=== PATIENT | female | born 2000 | race Caucasian/White ===

== ENCOUNTER → 2020-06-04 08:02 | Outpatient (CLI) | payer OTHER, SELFPAY ==
--- NOTE | 2020-06-04 08:05 | US_ITS ---
STUDY: ULTRASOUND BREAST - LEFT REASON FOR EXAM: Female, 20 years old. Left axillary lump. TECHNIQUE: Axial and longitudinal images of the LEFT breast were performed with a high resolution ultrasound transducer. # OF IMAGES: 33 COMPARISON: None. FINDINGS: LEFT Breast: The left axillary region was examined by ultrasound. 3 small benign appearing lymph nodes are seen. The larger measures 1.4 cm x 1 cm x 0.4 cm. US/Breast Limited Unilateral IMPRESSION: 3 benign appearing left axillary lymph nodes. ASSESSMENT CATEGORY: BIRADS Category 2: Benign. A letter regarding these results will be sent to the patient by the facility within 30 days. Electronically Signed: Ion Santiago, at 11:12 EST , Service support ,
== END ==
PROVIDERS: PCP Family Medicine; Referring Provider Family Medicine; Visit Provider Family Medicine
DX: I89.9 Noninfective disorder of lymphatic vessels and lymph nodes, unspecified (principal)
CPT/HCPCS: 76642

== ENCOUNTER → 2021-11-18 | Outpatient (CLI) | payer OTHER, SELFPAY ==
--- NOTE | 2021-11-18 14:31 | US_ITS ---
STUDY: ULTRASOUND BREAST - LEFT REASON FOR EXAM: Female, 21 years old. Left axillary lump. TECHNIQUE: Axial and longitudinal images of the LEFT breast were performed with a high resolution ultrasound transducer. # OF IMAGES: 25 COMPARISON: Comparison is made with prior examination dated 06/04/2020. FINDINGS: LEFT Breast: The previously seen lymph node in the left axilla as decreased in size. It presently measures 1.1 cm x 0.7 cm x 0.4 cm. A smaller benign-appearing lymph node is seen adjacent measuring 8 mm x 8 mm x 3 mm. US/Breast Limited Unilateral IMPRESSION: Small benign appearing left axillary nodes. ASSESSMENT CATEGORY: BIRADS Category 2: Benign. A letter regarding these results will be sent to the patient by the facility within 30 days. Electronically Signed: Ion Santiago MD at 15:33 EDT ,
== END | disposition home or self-care (01) ==
LOC: OPBI 14:28
PROVIDERS: PCP Family Medicine; Visit Provider Student in an Organized Health Care Education/Training Program
DX: N63.21 Unspecified lump in the left breast, upper outer quadrant (principal)
CPT/HCPCS: 76642

== ENCOUNTER → 2022-07-21 | Outpatient (CLI) | payer OTHER, SELFPAY ==
[2022-07-27 19:10] LABS: HPV Reflexed? NOT INDICATED
== END | disposition home or self-care (01) ==
LOC: LABSPEC 09:18
PROVIDERS: PCP Family Medicine; Visit Provider Student in an Organized Health Care Education/Training Program
DX: Z12.4 Encounter for screening for malignant neoplasm of cervix (principal)
CPT/HCPCS: 88175; G0145

== ENCOUNTER → 2024-01-18 | Outpatient (CLI) | payer OTHER, SELFPAY ==
[2024-01-18 19:25] LABS: hCG Titer Quant., Serum < 1 mIU/mL (1-3)
== END | disposition home or self-care (01) ==
PROVIDERS: PCP Family Medicine; Referring Provider Dermatology; Visit Provider Dermatology
DX: L01.01 Non-bullous impetigo (principal)
CPT/HCPCS: 36415; 84702; 87070; 87077; 87186; 87205

== ENCOUNTER → 2024-03-10 | Outpatient (CLI) | payer OTHER, SELFPAY ==
[2024-03-10 10:39] LABS: Absolute Lymphocyte Count 1.33 X10^3/uL (0.83-4.51); Absolute Neutrophil Count 4.8 X10^3/uL (2.0-7.7); Basophil# 0.01 X10^3/uL; Basophil% 0.2 % (0-1); Eosinophil# 0.03 X10^3/uL; Eosinophils% 0.5 % (0-5); Hematocrit 38.3 % (37-47); Hemoglobin 13.8 g/dL (12.0-15.0); Lymphocyte # 1.33 X10^3/ul (0.83-4.51); Lymphocyte % 20.4 % (19-41); Mean Corpuscular Hgb 30.9 pg (27.0-32.0); Mean Corpuscular Volume 85.9 fL (81-99); Mean Platelet Vol. 8.7 fl (6.2-12.0); Monocyte# 0.29 X10^3/uL; Monocyte% 4.4 % (0-10); NRBC Flagged by Analyzer 0 % (0-5); Neutrophil # 4.84 X10^3/uL (2.7-7.7); Neutrophil % 74.2 % (47-70); Platelet Count 278 K/mm3 (150-450); RBC Distribution Width CV 12.3 % (11.6-14.6); RBC Distribution Width SD 38.6 fl (35.1-43.9); Red Blood Count 4.46 M/mm3 (4.2-5.4); White Blood Count 6.5 K/mm3 (4.4-11.0)
[2024-03-10 11:56] LABS: HIV - WCH Non-Reactive (Nonreactive); Hepatitis B Surface Antigen Non-Reactive (Nonreactive); Hepatitis C Antibody Non-Reactive (Nonreactive); Rubella IgG Reactive (Nonreactive); Syphilis Antibodies Non-reactive
[2024-03-13 19:07] LABS: Chlamydia By Nucleic Acid AMP Negative (Negative); Gonococcus By Nucleic Acid AMP Negative (Negative)
== END | disposition home or self-care (01) ==
LOC: WOBLAB 09:32
PROVIDERS: PCP Family Medicine; Referring Provider Advanced Practice Midwife; Visit Provider Advanced Practice Midwife
DX: Z34.01 Encounter for supervision of normal first pregnancy, first trimester (principal)
CPT/HCPCS: 36415; 85025; 86703; 86762; 86780; 86803; 86850; 86900; 86901; 87086; 87340; 87491; 87591

== ENCOUNTER 2024-06-17 13:02 | Outpatient (CLI) | payer OTHER, SELFPAY ==
[2024-06-17 13:25] LABS: Color, Urine Straw (Yellow); Glucose, Dipstick Normal (Normal); Ketone-Dipstick 5 mg/dl (Negative); Leukocyte Esterase-Dipstick Negative /ul (Negative); Nitrite-Dipstick Negative (Negative); Occult Blood-Urine Negative /ul (Negative); Protein-Dipstick Negative (Negative); Urine Bilirubin Dipstick Negative (Negative); Urine Clarity Sl. Cloudy (Clear); Urine Urobilinogen Normal (Normal)
[2024-06-17 13:30] VITALS: BP 125/72; PULSE 77; O2SAT 98
[2024-06-17 13:31] VITALS: PULSE 80; RESP 14; TEMP 37.3; O2SAT 98
[2024-06-17 13:34] VITALS: BMI 22.8
--- NOTE | 2024-06-17 14:32 | OB.TRI.HP_ITS ---
HPI - General HPI Narrative GABBY HAWTHORNE, is a 24 F who presents at 24.2 with abdominal cramping. denies lof/vb. good fm. has increased physical activity with a new treadmill this past week and is experiencing urgency with urination. otherwise describes pain as constant diffuse tenderness. Maternal Data Information MELYSSA Calculator Estimated Delivery Date Method Current WG Current Estimate 10/05/24 LMP (Certain) 24w 2d Other Estimates 09/30/24 Ultrasound #1 25w 0d PFSH PFSH Medical History Staph skin infection Home Medications ?Medication ?Instructions ?Recorded ?Last Taken ?Type PNV 153-FA 400 mcg-om3 35 mg-dha 1 tab PO DAILY 03/03/24 Unknown History 25 mg-epa 5 mg-fish oil chew tablet ferrous sulfate 325 mg (65 mg 325 mg PO QDAY 03/03/24 Unknown History iron) tablet Allergy/AdvReac Type Severity Reaction Status Date / Time sulfamethoxazole (From Allergy Mild Rash Verified 06/06/24 10:55 Bactrim) trimethoprim (From Bactrim) Allergy Mild Rash Verified 06/06/24 10:55 amoxicillin Allergy Rash Verified 06/06/24 10:55 azithromycin (From Zithromax) Allergy Rash Verified 06/06/24 10:55 Penicillins Allergy Rash Verified 06/06/24 10:55 Family History Grandfather Hypertension Paternal & Maternal Grandmother Hypertension Paternal & Maternal Surgical History S/P tonsillectomy S/P adenoidectomy Social History adopted: No household members: spouse current occupational status: employed 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 current occupational exposures/hazards: No pets and animals: Yes pets and animals: dog(s) history of recent travel: Yes ([place] November) out of state: Yes out of country: Yes sexually active: Yes Smoking Status: Never smoker alcohol intake: never substance use type: does not use well-balanced diet: daily or most days caffeine: No eating out: rarely or never during the past year weight has: remained stable what type of physical activity do you participate in: running and other details: pilates frequency: 3-4 times per week duration: 15-30 minutes/day lyly/gnosticist: Cheondoism seatbelt use: always do you feel safe at home: Yes additional social history: - Mazin History 1 Elective abortions Hx Para 0 Spontaneous abortions Hx # Term Pregnancies Ectopic pregnancies Hx # Pregnancies Multiple births # of living children Visit Details Expected Delivery Route/Plan Labor Preferences- CB/BF classes: [] labor support person: [] labor intervention preferences: [] pain management options preferred: [] cut cord/dad catch: [] : [] PP control planned: [] discussed possible routes of delivery and associated risks: [] special requests: [] Plans Covid status: [] Flu vaccine: [] Tdap vaccine: [] Rhogam: [] LARC form signed: [] Problem list reviewed and updated with the most current plan of care details and appropriate orders placed. Relevant counseling for the gestational age provided. Continue routine care and follow up unless otherwise noted in visit notes/problem list details OB Flowsheet Initial Weight: 118 lb Date -?-?-?-?-?-?-?-?-?-?-?-?- EGA Weight BP Urine Prot -?-?-?-?-?-?-?-?-?-?-?-?- Glucose FHR FuHt Pres Dilation -?-?-?-?-?-?-?-?-?-?-?-?- Effaced St Visit Note 03/10/24 -?-?-?-?-?-?-?-?-?-?-?-?- 10w 1d 118 lb (+0 oz) 113/80 -?-?-?-?-?-?--?-?-?-?-?-?- 168 -?-?-?-?-?-?-?-?-?-?-?-?- KW- CRL cons wit h dates. accept NIPT. MFM Anatomy US ordered. 04/11/24 -?-?-?-?-?-?-?-?-?-?-?-?- 14w 5d 117 lb 4 oz (-12 oz) 124/81 Negative -?-?-?-?-?-?-?-?-?-?-?-?- Negative 140 -?-?-?-?-?-?-?-?-?-?-?-?- JV- no lof, vagi nal bleeding, or cramping. patient's dad did our addition. no complaints today. anatomy scan ordered. 05/09/24 -?-?-?-?-?-?-?-?-?-?-?-?- 18w 5d 120 lb 6 oz (+2 lb 6 oz) 116/72 Negative -?-?-?-?-?-?-?-?-?-?-?-?- Negative 153 -?-?-?-?-?-?-?-?-?-?-?-?- MH-No VB. Feels well. Reviewed PN labs. Declines flu, AFP 06/06/24 -?-?-?-?-?-?-?-?-?-?-?-?- 22w 5d 124 lb 8 oz (+6 lb 8 oz) 117/77 Negative -?-?-?-?-?-?-?-?-?-?-?-?- Negative 155 -?-?-?-?-?-?-?-?-?-?-?-?- MH-No Vb LOF. Go od FM. Doing well Physical Exam Const alert, oriented x3 and no apparent distress Resp normal respiratory effort, normal air movement and no use of accessory muscles Cardio regular rate and regular rhythm GI soft to palpation and non-tender Inspection: Palpation: soft Rectal Exam: deferred external exam normal, appearance of the vagina normal and appearance of the cervix normal Bimanual Exam - Vag & Uterus: uterus non-tender and other gravid uterus, normal for gestational age OB / External & Speculum: Negative for herpetic lesions Manual OB Exam: estimated gestational size appropriate, presentation cephalic and dilated 0 Amniotic Fluid: no amniotic fluid noted Extremity normal to inspection and full ROM Skin no rashes or lesions noted Neuro Motor Exam: strength 5/5 throughout and muscle tone normal throughout Deep Tendon Reflexes: Rt Patellar (L4): 2+ and Lt Patellar (L4): 2+ NST FHR Rate Baby A Baseline: 140 Assessment & Plan (1) Abdominal cramping affecting : COMMENT: BV swab sent. sse benign. cervix long thick and closed. urine dip benign, culture pending. treatment based on cultures. safe for d/c home (2) Supervision of normal first : QUALIFIERS: Trimester: second trimester Qualified Code(s): Z34.02 - Encounter for supervision of normal first , second trimester COMMENT: PRR,, MELYSSA 10/05/24, Mazin (3) : QUALIFIERS: Weeks of gestation: 22 weeks Qualified Code(s): Z3A.22 - 22 weeks gestation of COMMENT: NIPT low risk, nl anatomy PLAN: Plan Patient presents for triage evaluation secondary to adbominal cramping for the past 3 hours. urine culture pending. urine dip is negative. sterile speculum exam shows abundant white discharge with positive whiff, genital culture sent. FHT: 140, present, active movement Edgard: questionable irregular Contractions Assessment and plan: Reactive NST, reassuring maternal and status patient discharged to home to follow-up, increase hydration with rest from treadmill until next appointment. See problem list details for additional plan information. Charges/Coding Multi Select Codes Visit Charges Office Visit/Consults: 17844 OV L3 Est 20min
== END 2024-06-17 14:44 | disposition home or self-care (01) ==
LOC: WPOUT 13:09 → WP 13:09
PROVIDERS: PCP Family Medicine; Referring Provider Registered Nurse; Visit Provider Registered Nurse
DX: O99.891 Other specified diseases and conditions complicating pregnancy (principal); R10.9 Unspecified abdominal pain; Z3A.22 22 weeks gestation of pregnancy
CPT/HCPCS: 59025; 59050; 81002; 87070; 87086; 87088; 87205; 99221; G0378

== ENCOUNTER → 2024-06-30 | Outpatient (CLI) | payer OTHER, SELFPAY ==
[2024-06-30 12:16] LABS: Glucose Challenge Gest 1H 50g 123 mg/dL (70-140)
[2024-06-30 12:20] LABS: Absolute Lymphocyte Count 1.32 X10^3/uL (0.83-4.51); Absolute Neutrophil Count 6.7 X10^3/uL (2.0-7.7); Basophil# 0.03 X10^3/uL; Basophil% 0.4 % (0-1); Eosinophil# 0.03 X10^3/uL; Eosinophils% 0.4 % (0-5); Hematocrit 36.5 % (37-47); Hemoglobin 12.5 g/dL (12.0-15.0); Lymphocyte # 1.32 X10^3/ul (0.83-4.51); Lymphocyte % 15.5 % (19-41); Mean Corp Hgb Conc 34.2 g/dL (32-36); Mean Corpuscular Hgb 31.4 pg (27.0-32.0); Mean Corpuscular Volume 91.7 fL (81-99); Mean Platelet Vol. 9.1 fl (6.2-12.0); Monocyte# 0.34 X10^3/uL; NRBC Flagged by Analyzer 0 % (0-5); Neutrophil # 6.68 X10^3/uL (2.7-7.7); Neutrophil % 78.6 % (47-70); Platelet Count 258 K/mm3 (150-450); RBC Distribution Width CV 12.8 % (11.6-14.6); RBC Distribution Width SD 42.4 fl (35.1-43.9); Red Blood Count 3.98 M/mm3 (4.2-5.4); White Blood Count 8.5 K/mm3 (4.4-11.0)
[2024-06-30 12:52] LABS: HIV - WCH Non-Reactive (Nonreactive); Syphilis Antibodies Non-reactive
== END | disposition home or self-care (01) ==
LOC: BWCLAB 10:55
PROVIDERS: PCP Family Medicine; Referring Provider Obstetrics & Gynecology; Visit Provider Obstetrics & Gynecology
DX: Z34.02 Encounter for supervision of normal first pregnancy, second trimester (principal)
CPT/HCPCS: 36415; 82950; 85025; 86703; 86780

== ENCOUNTER → 2024-09-04 | Outpatient (CLI) | payer OTHER, SELFPAY ==
--- NOTE | 2024-09-04 13:48 | US_ITS ---
PROCEDURE: OB LIMITED WITH BIOMETRICS 09/04/2024 REASON FOR EXAM: SMALL FOR GESTATIONAL AGE AND BREECH TECHNIQUE: Transabdominal OB limited ultrasound with biometrics COMPARISON: None available FINDINGS Single live intrauterine cardiac activity 133 beats per minute. Presentation breech. Cervical length not visualized. Adnexa not visualized. JORDEN 7.6 cm, maximum vertical pocket 3.8 cm. Anterior placenta appears within limits, not low-lying. Grade 2. DIMENSIONS: Biparietal Diameter: 9.08 cm/36 weeks and 6 days, 86% Head Circumference: 33.88 cm/38 weeks 6 days, 91% Abdominal Circumference: 31.41 cm/35 weeks 2 days, 52% Femur Length: 6.90 cm/35 weeks 3 days, 40% FL/AC 22%, FL/BPD 76%, FL/HC 20%, CI 75%, HC/AC 1.08 ESTIMATED WEIGHT: 2757 g +/-414 g ESTIMATED WEIGHT PERCENTILE (24+ weeks): 54% Estimated age by current ultrasound 37 weeks 0 days, MELYSSA 09/25/2024 age by LMP 35 weeks 5 days, MELYSSA 10/05/2024 US/OB Limited With Biometrics IMPRESSION: Single live intrauterine with biometrics as above. JORDEN 7.6 cm Reading Location: [id number]
== END | disposition home or self-care (01) ==
PROVIDERS: PCP Family Medicine; Referring Provider Obstetrics & Gynecology; Visit Provider Obstetrics & Gynecology
DX: O32.1XX0 Maternal care for breech presentation, not applicable or unspecified (principal); Z3A.00 Weeks of gestation of pregnancy not specified
CPT/HCPCS: 76816

== ENCOUNTER → 2024-09-07 | Outpatient (CLI) | payer OTHER, SELFPAY | END | disposition home or self-care (01) | LOC: LABSPEC 15:43 | PROVIDERS: PCP Family Medicine; Referring Provider Obstetrics & Gynecology; Visit Provider Obstetrics & Gynecology | DX: Z34.03 Encounter for supervision of normal first pregnancy, third trimester (principal) | CPT/HCPCS: 87081 ==

== ENCOUNTER 2024-09-21 09:35 | Inpatient (IN) | payer OTHER, SELFPAY ==
[2024-09-21] VITALS (17 sets, daily range): BP systolic 100–120; BP diastolic 59–81; PULSE 72–99; RESP 16–25; TEMP 36.1–37.1; O2SAT 95–100; BMI 25.7
[2024-09-21] MEDS: Lactated Ringers 1,000 ML 999 ML IV ×2 (10:30→14:11)
[2024-09-21 11:21] LABS: Absolute Lymphocyte Count 1.12 X10^3/uL (0.83-4.51); Absolute Neutrophil Count 7.1 X10^3/uL (2.0-7.7); Basophil# 0.04 X10^3/uL; Basophil% 0.4 % (0-1); Eosinophil# 0.03 X10^3/uL; Eosinophils% 0.3 % (0-5); Hematocrit 35.5 % (37-47); Hemoglobin 12.8 g/dL (12.0-15.0); Lymphocyte # 1.12 X10^3/ul (0.83-4.51); Lymphocyte % 12.6 % (19-41); Mean Corp Hgb Conc 36.1 g/dL (32-36); Mean Corpuscular Hgb 32.3 pg (27.0-32.0); Mean Corpuscular Volume 89.6 fL (81-99); Mean Platelet Vol. 9.7 fl (6.2-12.0); Monocyte# 0.46 X10^3/uL; Monocyte% 5.2 % (0-10); NRBC Flagged by Analyzer 0 % (0-5); Neutrophil # 7.11 X10^3/uL (2.7-7.7); Platelet Count 231 K/mm3 (150-450); RBC Distribution Width CV 12.7 % (11.6-14.6); RBC Distribution Width SD 41.1 fl (35.1-43.9); Red Blood Count 3.96 M/mm3 (4.2-5.4); White Blood Count 8.9 K/mm3 (4.4-11.0)
[2024-09-21] MEDS: Acetaminophen 500 MG Tablet 1000 MG PO ×2 (11:53→19:16)
[2024-09-21 12:14] LABS: Syphilis Antibodies Nonreactive (Nonreactive)
[2024-09-21] MEDS: Lactated Ringers 1,000 ML 150 ML IV (15:40)
--- NOTE | 2024-09-21 17:17 | HP.PCM.OB_ITS ---
HPI - General General Date of Admission: 09/21/24 HPI Narrative GABBY HAWTHORNE, is a 24 F who presents with jorden 1.4 cm and decresaed movement no vb lof no regular ctx Maternal Data Information MELYSSA Calculator Estimated Delivery Date Method Current WG Current Estimate 10/05/24 LMP (Certain) 38w 0d Other Estimates 09/30/24 Ultrasound #1 38w 5d PFSH PFSH Medical History (Updated 09/21/24 @ 17:[address] Leatha Post MD) Oligohydramnios Staph skin infection Home Medications ?Medication ?Instructions ?Recorded ?Last Taken ?Type PNV 153-FA 400 mcg-om3 35 mg-dha 1 tab PO DAILY pregna ncy 03/03/24 09/19/24 21:00 History 25 mg-epa 5 mg-fish oil chew tablet 1 TAB Allergy/AdvReac Type Severity Reaction Status Date / Time sulfamethoxazole (From Allergy Mild Rash Verified 09/21/24 11:12 Bactrim) trimethoprim (From Bactrim) Allergy Mild Rash Verified 09/21/24 11:12 amoxicillin Allergy Rash Verified 09/21/24 11:12 azithromycin (From Zithromax) Allergy Rash Verified 09/21/24 11:12 Penicillins Allergy Rash Verified 09/21/24 11:12 Family History Grandfather Hypertension Paternal & Maternal Grandmother Hypertension Paternal & Maternal Surgical History S/P tonsillectomy S/P adenoidectomy Social History adopted: No household members: spouse current occupational status: employed 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 [employer] current occupational exposures/hazards: No pets and animals: Yes pets and animals: dog(s) history of recent travel: Yes ([place] November) out of state: Yes out of country: Yes sexually active: Yes Smoking Status: Never smoker alcohol intake: never substance use type: does not use well-balanced diet: daily or most days caffeine: No eating out: rarely or never during the past year weight has: remained stable what type of physical activity do you participate in: running and other details: pilates frequency: 3-4 times per week duration: 15-30 minutes/day lyly/caodaism: Druze seatbelt use: always do you feel safe at home: Yes additional social history: - Mazin History 1 Elective abortions Hx Para 0 Spontaneous abortions Hx # Term Pregnancies Ectopic pregnancies Hx # Pregnancies Multiple births # of living children Visit Details Expected Delivery Route/Plan Labor Preferences- CB/BF classes: no labor support person: Mazin labor intervention preferences: [] pain management options preferred: epidural if requested cut cord/dad catch: cord : maybe PP control planned: discussed discussed possible routes of delivery and associated risks: [] special requests: [] Plans Covid status: [] Flu vaccine: [] Tdap vaccine: declines Rhogam: na LARC form signed: yes movement and labor precautions reviewed. Problem list reviewed and updated with the most current plan of care details and appropriate orders placed. Relevant counseling for the gestational age provided. Continue routine care and follow up unless otherwise noted in visit notes/problem list details OB Flowsheet Initial Weight: 118 lb Date -?-?-?-?-?-?-?-?-?-?-?-?- EGA Weight BP Urine Prot -?-?-?-?-?-?-?-?-?-?-?-?- Glucose FHR FuHt Pres Dilation -?-?-?-?-?-?-?-?-?-?-?-?- Effaced St Visit Note 03/10/24 -?-?-?-?-?-?-?-?-?-?-?-?- 10w 1d 118 lb (+0 oz) 113/80 -?-?-?-?-?-?-?-?-?-?-?-?- 168 -?-?-?-?-?-?-?-?-?-?-?-?- KW- CRL cons wit h dates. accept NIPT. MFM Anatomy US ordered. 04/11/24 -?-?-?-?-?-?-?-?-?-?-?-?- 14w 5d 117 lb 4 oz (-12 oz) 124/81 Negative -?-?-?-?-?-?-?-?-?-?-?-?- Negative 140 -?-?-?-?-?-?-?-?-?-?-?-?- JV- no lof, vagi nal bleeding, or cramping. patient's dad did our addition. no complaints today. anatomy scan ordered. 05/09/24 -?-?-?-?-?-?-?-?-?-?-?-?- 18w 5d 120 lb 6 oz (+2 lb 6 oz) 116/72 Negative -?-?-?-?-?-?-?-?-?-?-?-?- Negative 153 -?-?-?-?-?-?-?-?-?-?-?-?- MH-No VB. Feels well. Reviewed PN labs. Declines flu, AFP 06/06/24 -?-?-?-?-?-?-?-?-?-?-?-?- 22w 5d 124 lb 8 oz (+6 lb 8 oz) 117/77 Negative -?-?-?-?-?-?-?-?-?-?-?-?- Negative 155 -?-?-?-?-?-?-?-?-?-?-?-?- MH-No Vb LOF. Go od FM. Doing well 06/30/24 -?-?-?-?-?-?-?-?-?-?-?-?- 26w 1d 126 lb 4 oz (+8 lb 4 oz) 113/77 Negative -?-?-?-?-?-?-?-?-?-?-?-?- Negative 155 25 -?-?-?-?-?-?-?-?-?-?-?-?- KW- No vb/crampi ng. good fm. had glucose today. 07/19/24 -?-?-?-?-?-?-?-?-?-?-?-?- 28w 6d 130 lb 6 oz (+12 lb 6 oz) 110/68 Negative -?-?-?-?-?-?-?-?-?-?-?-?- Negative 146 28 -?-?-?-?--?-?-?-?-?-?-?-?- MH-No VB, LOF. Good FM. Larc. Declines tdap 08/01/24 -?-?-?-?-?-?-?-?-?-?-?-?- 30w 5d 133 lb 6 oz (+15 lb 6 oz) 114/75 Negative -?-?-?-?-?-?-?-?-?-?-?-?- Negative 135 30 -?-?-?-?-?-?-?-?-?-?-?-?- SM- no vb lof go od fm no regular ctx 08/15/24 -?-?-?-?-?-?-?-?-?--?-?-?- 32w 5d 136 lb 4 oz (+18 lb 4 oz) 114/72 Negative -?-?-?-?-?-?-?-?-?-?-?-?- Negative 130 31 -?-?-?-?-?-?-?-?-?-?-?-?- KW- no vb/lof/ct x. good fm. pepcid for acid reflux. 08/31/24 -?-?-?-?-?-?-?-?-?-?-?-?- 35w 0d 138 lb (+20 lb) 126/83 Negative -?-?-?-?-?-?-?-?-?-?-?-?- Negative 135 33.5 Breech -?-?-?-?-?-?-?-?-?-?-?-?- JV- ordering ricky wth scan and JORDEN for next visit. no lof, vag bleeding, or dec fm. measuring small also. 09/07/24 -?-?-?-?-?-?-?-?-?-?-?-?- 36w 0d 138 lb 6 oz (+20 lb 6 oz) 123/78 Negative -?-?-?-?-?-?-?-?-?-?-?-?- Negative 135 34 Breech 1 -?-?-?-?-?-?-?-?-?-?-?-?- 50 -2 JV- JORDEN to day is 9. setting up primary cs 09/15/24 -?-?-?-?-?-?-?-?-?-?-?-?- 37w 1d 142 lb 8 oz (+24 lb 8 oz) 134/86 Negative -?-?-?-?-?-?-?-?-?-?-?-?- Negative 140 35 Breech -?-?-?-?-?-?-?-?-?-?-?-?- KW- no vb/lof/ct x. good fm. many questions about C/S answered today 09/21/24 -?-?-?-?-?-?-?-?-?-?-?-?- 38w 0d 143 lb 2 oz (+25 lb 2 oz) 122/83 Trace -?-?-?-?-?-?-?-?-?-?-?-?- Negative -?-?-?-?-?-?-?-?-?-?-?-?- JORDEN 1.4 cm proce ed with primary csection NST FHR Rate Baby A Baseline: 140 Variability:: Moderate Accelerations:: 15 x 15 Decelerations:: None NST Reactive:: Yes FHR Category:: Category I Uterine Activity:: q3-5 ROS Constitutional Constitutional: Reports systems reviewed and no addt'l complaints, except as documented ENT HEENT: Reports systems reviewed and no addt'l complaints, except as documented Cardiovascular Cardiovascular: Reports systems reviewed and no addt'l complaints, except as documented Respiratory/Chest Respiratory/Chest: Reports systems reviewed and no addt'l complaints, except as documented Gastrointestinal Gastrointestinal: Reports systems reviewed and no addt'l complaints, except as documented and nausea; Denies abdominal pain Genitourinary Genitourinary: Reports systems reviewed and no addt'l complaints, except as documented, contractions Details: present and frequency (regular ) and movement Details: present Musculoskeletal Musculoskeletal: Reports systems reviewed and no addt'l complaints, except as documented Integumentary Integumentary: Reports as per HPI Neurologic Neurologic: Reports systems reviewed and no addt'l complaints, except as documented Endocrine Endocrinology: Reports systems reviewed and no addt'l complaints, except as documented Vital Signs Vital Signs Vital Signs: 09/21/24 10:09 09/21/24 10:09 09/21/24 12:27 Temperature 98.5 F Temperature Source Temporal Pulse Rate 99 99 Respiratory Rate 16 Blood Pressure 120/81 H 120/81 H Blood Pressure Mean 94 BP Systolic 120 BP Diastolic 81 Blood Pressure Source Monitor Blood Pressure Position Semi-Fowlers Blood Pressure Location Left Arm Pulse Ox 98 Oxygen Delivery Method Room Air Weight Weight: 141 lb Body Mass Index (BMI) 25.7 Physical Exam Const alert, oriented x3 and healthy appearing Constitutional Narrative: uncomfortable with contractions HEENT normocephalic and moist oral mucous membranes Head and Scalp: atraumatic Neck full ROM, no lymphadenopathy, supple and thyroid normal General: trachea midline Thyroid: thyroid normal Lymph Lymphatic: no lymphadenopathy noted Chest inspection of chest normal Resp normal respiratory effort Cardio regular rate GI soft to palpation and non-tender GI Narrative: gravid Inspection: gravid external exam normal Bimanual Exam - Vag & Uterus: uterus non-tender Manual OB Exam: estimated gestational size appropriate, presentation cephalic, dilated, effaced and station Extremity normal to inspection General Extremity: Negative for edema Skin no rashes or lesions noted Neuro deep tendon reflexes 2+ bilaterally Motor Exam: strength 5/5 throughout and clonus absent Psych mental status grossly normal Labs Labs Labs: Blood Type A POSITIVE Antibody Screen NEGATIVE Hct 35.5 % (37-47) L Hgb 12.8 g/dL (12.0-15.0) Obstetrics Ultrasound Syphilis Total Ab Nonreactive (Nonreactive) Rubella IgG Antibody Reactive (Nonreactive) Hep Bs Antigen Non-Reactive (Nonreactive) Hepatitis C Antibody Non-Reactive (Nonreactive) Chlamydia DNA (CHUN) Negative (Negative) N.gonorrhoeae DNA (CHUN) Negative (Negative) HIV 1&2 Antibody Non-Reactive (Nonreactive) Glucose 1 Hr 50 gm 123 mg/dL (70-140) Assessment & Plan (1) Oligohydramnios in third trimester: (2) Small for gestational age fetus: COMMENT: normal growth on 09/05/24 scan but fluid is 7.5, rpt in office at 36 week visit. (3) Supervision of normal first : QUALIFIERS: Trimester: third trimester Qualified Code(s): Z34.03 - Encounter for supervision of normal first , third trimester COMMENT: PRR,, MELYSSA 5/15/25, boy- guy Mazin (4) : QUALIFIERS: Weeks of gestation: 38 weeks Qualified Code(s): Z3A.38 - 38 weeks gestation of COMMENT: GBS neg,NIPT low risk, nl anatomy. carrier and ntd declined. PLAN: Plan proceed with LTCS
--- NOTE | 2024-09-21 17:18 | EX.PCM.OBRPT ---
Assessment & Plan (1) Oligohydramnios in third trimester: (2) Breech presentation: COMMENT: Primary section scheduled for 09/28 @ 7:15 with JV (3) Small for gestational age fetus: COMMENT: normal growth on 09/05/24 scan but fluid is 7.5, rpt in office at 36 week visit. (4) Supervision of normal first : QUALIFIERS: Trimester: third trimester Qualified Code(s): Z34.03 - Encounter for supervision of normal first , third trimester COMMENT: PRR,, MELYSSA 10/05/24, boy- malena Mazin (5) : QUALIFIERS: Weeks of gestation: 38 weeks Qualified Code(s): Z3A.38 - 38 weeks gestation of COMMENT: GBS neg,NIPT low risk, nl anatomy. carrier and ntd declined. (6) delivery delivered: COMMENT: SM LTCS oligo 38 guillaume Collins Maternal Data Information MELYSSA Calculator Estimated Delivery Date Method Current WG Current Estimate 10/05/24 LMP (Certain) 38w 0d Other Estimates 09/30/24 Ultrasound #1 38w 5d Operative Report (OB) Details Procedure Type: low transverse Date of Procedure: 09/21/24 Procedure Start Time: 17:47 Procedure Stop Time: 18:16 Pre-Operative Diagnosis: Other Other Pre-Operative diagnosis: see a/p comments Post-Operative Diagnosis: Same as Pre-operative diagnosis Classification: Scheduled Type of Anesthesia: Spinal Special Medications: none Antibiotic Given: Ancef 2 grams IV x1 Drain: Ray to straight drain Estimated Blood Loss: 900 Fluids Replaced: crystalloid Findings Description of surgery: The patient is a breech oligo presented for primary . Spinal anesthesia was placed without difficulty. Ray catheter was placed. The patient was placed in the dorsal supine position with leftward tilt. Patient was prepped and draped in the normal sterile fashion. Pfannenstiel skin incision was made with the scalpel and carried through to the underlying layer of fascia with the scalpel. Fascia was nicked in the midline and the incision extended laterally. The rectus bellies were dissected off superiorly and inferiorly with out complication both sharply and bluntly. The peritoneum was entered digitally. The incision was stretched and a low transverse uterine incision was made with the scalpel. The 's head was delivered atraumatically followed by the anterior and posterior shoulders without complication the rest of the delivered. The cord was clamped and cut and the infant was handed off to awaiting nurse. The placenta was delivered spontaneously immediately following and was noted to be intact and have a three-vessel cord. The uterus was exteriorized cleared of all clots and debris, and the incision was closed in a single layer closure using #1 Monocryl. The ovaries and fallopian tubes were noted to be within normal limits. The uterus was returned to the maternal abdomen and gutters were cleared of all clots and debris. The peritoneum was closed with 3-0 Monocryl in a running fashion. Gloves were changed prior to fascial closure. Fascia was closed with 0 PDS in a running fashion. Subcutaneous tissue was copiously irrigated and the skin was closed with 3-0 Monocryl in a subcuticular fashion. Mepilex dressing was applied without complication. Patient was taken to recovery in stable condition. It was discussed with the patient that based on the clinical information obtained during this encounter, combined with her history, at this time I would recommend vaginal or for future deliveries if further pregnancies are desired. Surgical findings: breech oligo Presentation: Vertex Amniotic Membrane Rupture Type: Artificial Amniotic Fluid Description: Clear Specimen collected: Yes Description of specimen(s) removed: placenta and baby Cord Vessel Description: 3 Vessels Delayed Cord Clamping: Yes Upsetting Machine Operator house painting instructor: Yes Steward Dishwasher: Edwige Mendoza Tasks completed by assisted living nursing director: Opening & closing, Retracting and Other (assisting in delivery of the ) Additional night assistant?: No Complications Complications: No Admit VTE Documentation VTE Present on Admission: No VTE Mechan Device Prophylaxis: SCD's Procedures Urinary/Genital [id number]: 20015 Delivery [facility]
--- NOTE | 2024-09-21 17:19 | DCINST_ITS ---
Discharge Instructions Diet Discharge Diet: No restrictions DC O2, CPAP, BIPAP needs Home O2 Discharge instructions: No Dressing / Incision Discharge Activity: May Not Drive (for 2 weeks or while taking narcotic pain medications.), May Shower and May Take a Tub Bath (in 7 days) May shower in (days): 0 May resume sexual activity in: 4-6 weeks Weight Bearing Status: Full weight bearing Lifting Restrictions: 20 pounds Dressing / Incision Call your doctor if your incision/area has: Continuous Slow Oozing, Sudden Increased Bleeding, Increased Pain/ Swelling, Increased Redness and Foul Smelling Discharge Call your doctor if you observe: Fever of 101 or Higher and Using more than 1 pad per hour (for 2 hours) Suture Line Care: Avoid Pulling/Pushing and Avoid Pinching/Bending Cleanse incision/area with: Soap & Water and Keep Dressing Clean & Dry Follow Up Care Please Follow Up With: Leatha Post MD When: Call [phone] to make an appointment for an incision check in 1-2 weeks. Test Results: Test results from this visit will be discussed in further detail at your follow- up appointment, if applicable. Discharge Plan Admission Admit Date/Time: 09/21/24 09:35 Attending Provider: Leatha Post Primary Care Provider: Blair Lim Discharge Orders/Prescriptions Prescriptions: New oxycodone-acetaminophen [Percocet] 5-325 mg tablet 1 tab PO Q4H PRN (Reason: pain) 7 Days Qty: 20 0RF naproxen 500 mg tablet 500 mg PO BID PRN PRN (Reason: Pain) Qty: 30 1RF No Action PNV no.[id number] 400 mcg-35 mg- 25 mg-5 mg tablet,chewable 1 tab PO DAILY Referrals / Follow Up: Blair Lim MD [Primary Care Provider] - Disposition Disposition (needs filled in before D/C Order can be placed): Home, Self Care
[2024-09-21] MEDS: Sodium Citrate/Citric Acid 30 ML UDC PO (17:20)
[2024-09-21] MEDS: Clindamycin 900 MG/50 ML BAG 75 MG IV (17:26)
[2024-09-21] MEDS: Gentamicin IV 280 MG in Dextrose 5%-Water (50mL Bag) 50 ML 100 MG IVPB (17:40)
--- NOTE | 2024-09-21 18:15 | PCM.POST.ANE ---
Anesthesia: Postop Eval I Current Vital Signs Temperature: 97 F Pulse Rate: 78 Blood Pressure: 107/67 Respiratory Rate: 16 Pulse Ox: 100 Oxygen Delivery Method: Room Air Assessment Airway patent: Yes Spontaneous unlabored respirations: Yes Mental status: Awake and Calm nausea: No Vomiting: No Anesthesia Complication: No Fluid Hydration Crystalloid volume administer (ml): 1,000 Total IV fluid infused: 1,000 Progress Note Anesthesia document: Postop Eval 1 completed: No
--- NOTE | 2024-09-21 18:18 | POSTOPAN2_ITS ---
Anesthesia Postop Eval I Sum Postop Eval Completion status Anesthesia document: Postop Eval 1 completed: No Anesthesia Postop Eval I Summary Anesthesia Postop Eval I Summary: Anesthesia Postop Eval I: Assessment Summary Airway patent Yes 09/21/24 18:15 GEOPHYSICAL [email or web address] Spontaneous unlabored Yes 09/21/24 18:15 GEOPHYSICAL OBSERVER.MDOT respirations Mental status Awake,Calm 09/21/24 18:15 GEOPHYSICAL OBSERVER.MDOT nausea No 09/21/24 18:15 GEOPHYSICAL OBSERVER.MDOT Vomiting No 09/21/24 18:15 GEOPHYSICAL [email or web address].MDOT Anesthesia Postop Eval I: Fluid Summary Crystalloid volume administer 1,000 09/21/24 18:15 GEOPHYSICAL [email or web address].MDOT (ml) Colloids volume administered ( ml) Blood Product volume administered (ml) Total IV fluid infused 1,000 09/21/24 18:15 GEOPHYSICAL [email or web address].MDOT Anesthesia Postop Eval I: Summary Notes Anesthesia Complication No 09/21/24 18:15 GEOPHYSICAL [email or web address].MDOT Anesthesia Complication Comment: Post-operative progress note Anesthesia: Postop Eval II Evaluation Mental status: Awake and Calm Pain Level: 0 nausea: No Vomiting: No Complications Anesthesia Complication: No
--- NOTE | 2024-09-21 18:18 | PCM.POSTANE2 ---
Anesthesia Postop Eval I Sum Postop Eval Completion status Anesthesia document: Postop Eval 1 completed: No Anesthesia Postop Eval I Summary Anesthesia Postop Eval I Summary: Anesthesia Postop Eval I: Assessment Summary Airway patent Yes 09/21/24 18:15 CLINICAL GENETICIST.MDOT Spontaneous unlabored Yes 09/21/24 18:15 CLINICAL GENETICIST.MDOT respirations Mental status Awake,Calm 09/21/24 18:15 CLINICAL GENETICIST.MDOT nausea No 09/21/24 18:15 CLINICAL GENETICIST.MDOT Vomiting No 09/21/24 18:15 CLINICAL GENETICIST.MDOT Anesthesia Postop Eval I: Fluid Summary Crystalloid volume administer 1,000 09/21/24 18:15 CLINICAL GENETICIST.MDOT (ml) Colloids volume administered ( ml) Blood Product volume administered (ml) Total IV fluid infused 1,000 09/21/24 18:15 CLINICAL GENETICIST.MDOT Anesthesia Postop Eval I: Summary Notes Anesthesia Complication No 09/21/24 18:15 CLINICAL GENETICIST.MDOT Anesthesia Complication Comment: Post-operative progress note Anesthesia: Postop Eval II Evaluation Mental status: Awake and Calm Pain Level: 0 nausea: No Vomiting: No Complications Anesthesia Complication: No
[2024-09-21] MEDS: Oxytocin 15 Units/NS 250ml 15 UNITS/250 ML IV.SOLN 83 UNITS IV (18:45)
[2024-09-21] MEDS: Ketorolac 30 MG/ML Syringe IV (19:02)
[2024-09-22] VITALS (8 sets, daily range): BP systolic 99–118; BP diastolic 66–74; PULSE 79–90; RESP 16; TEMP 36.4–36.8; O2SAT 97–100
[2024-09-22] MEDS: Acetaminophen 500 MG Tablet 1000 MG PO ×4 (02:50→21:21)
[2024-09-22] MEDS: 0.9% Saline Lock 10 ML Syringe IV ×2 (02:50→09:03)
[2024-09-22] MEDS: Ketorolac 30 MG/ML Syringe IV ×2 (02:50→09:05)
[2024-09-22] MEDS: DiphenhydrAMINE 25 MG Capsule PO (02:56)
[2024-09-22 06:02] LABS: Hematocrit 27.8 % (37-47); Hemoglobin 9.9 g/dL (12.0-15.0); Mean Corp Hgb Conc 35.6 g/dL (32-36); Mean Corpuscular Hgb 32.2 pg (27.0-32.0); Mean Corpuscular Volume 90.6 fL (81-99); Mean Platelet Vol. 9.2 fl (6.2-12.0); Platelet Count 152 K/mm3 (150-450); RBC Distribution Width CV 12.8 % (11.6-14.6); RBC Distribution Width SD 42.1 fl (35.1-43.9); Red Blood Count 3.07 M/mm3 (4.2-5.4); White Blood Count 9.4 K/mm3 (4.4-11.0)
--- NOTE | 2024-09-22 07:15 | PN.OBGYN_ITS ---
Subjective Subjective Patient doing well without complaints. Tolerating PO. Ambulating and voiding without difficulty. Feeding well. Denies chest pain, shortness of breath, calf pain/swelling, fevers, chills, lightheadedness. Objective Data Objective Data Vital Signs: Vital Signs Temp Pulse Resp BP Pulse Ox O2 Del Method 98.1 F 79 16 108/66 100 Room Air 09/22/24 02:48 09/22/24 02:48 09/22/24 04:48 09/22/24 02:48 09/22/24 04:48 09/22/24 04:48 Oxygen Delivery Method Room Air Weight: 141 lb Body Mass Index (BMI) 25.7 Intake & Output: Intake and Output for Last 24 Hours 09/20/24 09/21/24 09/22/24 23:59 23:59 23:59 Intake Total 3223.00 / 3223.00 Output Total 1300 / 1300 600 / 600 Balance 1923.00 / 1923.00 -600 / -600 Lab / Micro Data Attestation: I reviewed the patient's lab results. 09/22/24 05:45 Labs: Laboratory Results - last 24 hr 09/21/24 10:30: WBC 8.9, RBC 3.96 L, Hgb 12.8, Hct 35.5 L, MCV 89.6, MCH 32.3 H, MCHC 36.1 H, RDW Std Deviation 41.1, RDW Coeff of Glenn 12.7, Plt Count 231, MPV 9.7, Immature Gran % (Auto) 1.500 H, Neut % (Auto) 80.0 H, Lymph % (Auto) 12.6 L , [place] % (Auto) 5.2, Eos % (Auto) 0.3, Baso % (Auto) 0.4, Absolute Neuts (auto) 7.1, Absolute Lymphs (auto) 1.12, Nucleated RBC % 0, Syphilis Total Ab Nonreactive, Blood Type A POSITIVE, Antibody Screen NEGATIVE 09/22/24 05:45: WBC 9.4, RBC 3.07 L, Hgb 9.9 L, Hct 27.8 L, MCV 90.6, MCH 32.2 H , MCHC 35.6, RDW Std Deviation 42.1, RDW Coeff of Glenn 12.8, Plt Count 152, MPV 9.2 ROS Constitutional Constitutional: Reports systems reviewed and no addt'l complaints, except as documented; Denies anorexia or headache(s) Cardiovascular Cardiovascular: Reports systems reviewed and no addt'l complaints, except as documented; Denies dizziness, dyspnea, nausea or tachypnea Respiratory/Chest Respiratory/Chest: Reports systems reviewed and no addt'l complaints, except as documented; Denies cough, dyspnea, shortness of breath at rest or tachypnea Gastrointestinal Gastrointestinal: Reports systems reviewed and no addt'l complaints, except as documented; Denies abdominal pain, constipation or nausea Genitourinary Genitourinary: Reports systems reviewed and no addt'l complaints, except as documented; Denies burning urination, difficulty urinating, dysuria, urinary frequency or urinary incontinence Musculoskeletal Musculoskeletal: Reports systems reviewed and no addt'l complaints, except as documented Integumentary Integumentary: Reports systems reviewed and no addt'l complaints, except as documented Neurologic Neurologic: Reports systems reviewed and no addt'l complaints, except as documented; Denies abnormal speech, dizziness or headache(s) Psychiatric Psychiatric: Reports systems reviewed and no addt'l complaints, except as documented Endocrine Endocrinology: Reports systems reviewed and no addt'l complaints, except as documented Hematologic/Lymphatic Hematologic/Lymphatic: Reports systems reviewed and no addt'l complaints, except as documented Physical Exam Const alert, oriented x3 and no apparent distress Neck full ROM Resp normal respiratory effort, normal air movement and no retractions Effort and Inspection: able to speak in complete sentences and symmetric chest movement GI soft to palpation Inspection: incision intact Bladder / Kidney Exam: bladder normal to palpation Uterus Palpation: uterus fundus firm Extremity normal to inspection and full ROM Psych mental status grossly normal, thought process normal and cooperative Assessment & Plan (1) delivery delivered: COMMENT: LTCS oligo 38 boy [place] PLAN: s/p LTCS PPD # 1 1. routine post care 2. breast feeding- support given 3. rh positive 4. rubella immune (2) Oligohydramnios in third trimester: (3) Breech presentation: COMMENT: Primary section scheduled for 09/28 @ 7:15 with JV (4) Small for gestational age fetus: COMMENT: normal growth on 09/05/24 scan but fluid is 7.5, rpt in office at 36 week visit. (5) Supervision of normal first : QUALIFIERS: Trimester: third trimester Qualified Code(s): Z34.03 - Encounter for supervision of normal first , third trimester COMMENT: PRR,, MELYSSA 10/05/24, boy- [place] (6) : QUALIFIERS: Weeks of gestation: 38 weeks Qualified Code(s): Z 3A.38 - 38 weeks gestation of COMMENT: GBS neg,NIPT low risk, nl anatomy. carrier and ntd declined. Charges/Coding Multi Select Codes Urinary/Genital Urinary/Genital CPT Codes: No Charge
[2024-09-22] MEDS: Senna/Docusate Sodium 1 Tablet PO (09:02)
[2024-09-22] MEDS: Naproxen 500 MG Tablet PO ×2 (15:21→23:19)
[2024-09-23 02:20] VITALS: BP 109/65; PULSE 89; RESP 16; TEMP 36.6; O2SAT 96
[2024-09-23] MEDS: Acetaminophen 500 MG Tablet 1000 MG PO ×2 (03:05→09:02)
[2024-09-23] MEDS: Naproxen 500 MG Tablet PO (07:01)
--- NOTE | 2024-09-23 07:15 | PCM.PN.OB ---
Subjective Subjective Patient doing well without complaints. Tolerating PO. Ambulating and voiding without difficulty. Feeding well. Denies chest pain, shortness of breath, calf pain/swelling, fevers, chills, lightheadedness. Objective Data Objective Data Vital Signs: Vital Signs Temp Pulse Resp BP Pulse Ox O2 Del Method 97.9 F 89 16 109/65 96 Room Air 09/23/24 02:20 09/23/24 02:20 09/23/24 02:20 09/23/24 02:20 09/23/24 02:20 09/23/24 02:20 Oxygen Delivery Method Room Air Weight: 141 lb Body Mass Index (BMI) 25.7 Intake & Output: Intake and Output for Last 24 Hours 09/21/24 09/22/24 09/23/24 23:59 23:59 23:59 Intake Total 3223.00 / 3223.00 Output Total 1300 / 1300 600 / 600 Balance 1923.00 / 1923.00 -600 / -600 Lab / Micro Data 09/22/24 05:45 ROS Constitutional Constitutional: Reports systems reviewed and no addt'l complaints, except as documented; Denies anorexia or headache(s) Cardiovascular Cardiovascular: Reports systems reviewed and no addt'l complaints, except as documented; Denies dizziness, dyspnea, nausea or tachypnea Respiratory/Chest Respiratory/Chest: Reports systems reviewed and no addt'l complaints, except as documented; Denies cough, dyspnea, shortness of breath at rest or tachypnea Gastrointestinal Gastrointestinal: Reports systems reviewed and no addt'l complaints, except as documented; Denies abdominal pain, constipation or nausea Genitourinary Genitourinary: Reports systems reviewed and no addt'l complaints, except as documented; Denies burning urination, difficulty urinating, dysuria, urinary frequency or urinary incontinence Musculoskeletal Musculoskeletal: Reports systems reviewed and no addt'l complaints, except as documented Integumentary Integumentary: Reports systems reviewed and no addt'l complaints, except as documented Neurologic Neurologic: Reports systems reviewed and no addt'l complaints, except as documented; Denies abnormal speech, dizziness or headache(s) Psychiatric Psychiatric: Reports systems reviewed and no addt'l complaints, except as documented Endocrine Endocrinology: Reports systems reviewed and no addt'l complaints, except as documented Hematologic/Lymphatic Hematologic/Lymphatic: Reports systems reviewed and no addt'l complaints, except as documented Physical Exam Const alert, oriented x3 and no apparent distress Neck full ROM Resp normal respiratory effort, normal air movement and no retractions Effort and Inspection: able to speak in complete sentences and symmetric chest movement GI soft to palpation Bladder / Kidney Exam: bladder normal to palpation Uterus Palpation: uterus fundus firm Extremity normal to inspection and full ROM Psych mental status grossly normal, thought process normal and cooperative Assessment & Plan (1) delivery delivered: COMMENT: LTCS 09/21/24 oligo 38 boy [place] PLAN: s/p LTCS PPD # 2 1. routine post care 2. breast feeding- support given 3. rh positive 4. rubella immune 5. Discharge home (2) Oligohydramnios in third trimester: (3) Breech presentation: COMMENT: Primary section scheduled for 09/28 @ 7:15 with JV (4) Small for gestational age fetus: COMMENT: normal growth on 09/05/24 scan but fluid is 7.5, rpt in office at 36 week visit. (5) Supervision of normal first : QUALIFIERS: Trimester: third trimester Qualified Code(s): Z34.03 - Encounter for supervision of normal first , third trimester COMMENT: PRR,, MELYSSA 10/05/24, boy- [place] (6) : QUALIFIERS: Weeks of gestation: 38 weeks Qualified Code(s): Z3A.38 - 38 weeks gestation of COMMENT: GBS neg,NIPT low risk, nl anatomy. carrier and ntd declined. Charges/Coding Multi Select Codes Urinary/Genital Urinary/Genital CPT Codes: No Charge
--- NOTE | 2024-09-23 07:16 | PCM.DC.SUM ---
Providers Date of Admission: 09/21/24 Date of Discharge: 09/23/24 Primary Care Physician: Dr. Blair Lim MD Reason For Visit: PRIMARY Diagnosis Discharge Diagnosis (1) delivery delivered: Status: Acute Code(s): O82 - Encounter for delivery without indication Plan: s/p LTCS PPD # 2 1. routine post care 2. breast feeding- support given 3. rh positive 4. rubella immune 5. Discharge home (2) Oligohydramnios in third trimester: Status: Acute Code(s): O41.03X0 - Oligohydramnios, third trimester, not applicable or unspecified (3) Breech presentation: Status: Acute Code(s): O32.1XX0 - Maternal care for breech presentation, not applicable or unspecified (4) Small for gestational age fetus: Status: Acute (5) Supervision of normal first : Status: Acute Code(s): Z34.00 - Encounter for supervision of normal first , unspecified trimester Qualifiers: Trimester: third trimester Qualified Code(s): Z34.03 - Encounter for supervision of normal first , third trimester (6) : Status: Acute Code(s): Z34.90 - Encounter for supervision of normal , unspecified, unspecified trimester Qualifiers: Weeks of gestation: 38 weeks Qualified Code(s): Z3A.38 - 38 weeks gestation of Medications at Discharge Home Medications PNV 153-FA 400 mcg-om3 35 mg-dha 25 mg-epa 5 mg-fish oil chew tablet 1 tab PO DAILY 03/03/24 naproxen 500 mg tablet 500 mg PO BID PRN PRN Pain #30 tabs 09/21/24 oxycodone-acetaminophen 5 mg-325 mg tablet (Percocet) 1 tab PO Q4H PRN pain 7 days #20 tabs 09/21/24 Hospital Course Operations section Procedures None Summary of Care Provided Minutes Spent on Discharge: 30 Physical Exam Const alert, oriented x3 and no apparent distress Neck full ROM Resp normal respiratory effort, normal air movement and no retractions Effort and Inspection: able to speak in complete sentences and symmetric chest movement GI soft to palpation Inspection: incision intact Bladder / Kidney Exam: bladder normal to palpation Uterus Palpation: uterus fundus Extremity normal to inspection and full ROM Psych mental status grossly normal, thought process normal and cooperative Weight / BMI Weight Weight: 141 lb Body Mass Index (BMI) 25.7 ABG / Lab / Microbiology Data 09/22/24 05:45 D/C Instructions Discharge Diet: No restrictions May shower in (days): 0 May resume sexual activity in: 4-6 weeks Weight Bearing Status: Full weight bearing Call your doctor if your incision/area has: Continuous Slow Oozing, Sudden Increased Bleeding, Increased Pain/ Swelling, Increased Redness and Foul Smelling Discharge Call your doctor if you observe: Fever of 101 or Higher and Using more than 1 pad per hour (for 2 hours) Suture Line Care: Avoid Pulling/Pushing and Avoid Pinching/Bending Cleanse incision/area with: Soap & Water and Keep Dressing Clean & Dry DC O2, CPAP, BIPAP Needs Home O2 Discharge instructions: No Please Follow Up With: Leatha Post MD When: Call [phone] to make an appointment for an incision check in 1-2 weeks. Meaningful Use Info Meaningful Use Meaningful Use Diagnoses (Choose all that apply): None applicable Ischemic Stroke Statin Dosing Therapy Reference: STATIN DOSE THERAPY REFERENCE: * Patients > 75 years receive moderate or high dose statin therapy. * Patients 75 years or YOUNGER should receive HIGH intensity statin dose unless contraindicated. You will be required to document reason for non-treatment if statin daily dose does not meet guidelines. HIGH DOSE STATIN THERAPY DAILY Atorvastatin > than or = to 40 mg Rosuvastatin > than or = to 20 mg Amlodipine + Atorvastatin > than or = to 2.5/40 mg Ezetimibe + Simvastatin 10/80 mg Simvastatin 80mg Discharge Plan Admission Admit Date/Time: 09/21/24 09:35 Attending Provider: Leatha Post Primary Care Provider: Blair Lim Discharge Orders/Prescriptions Prescriptions: New oxycodone-acetaminophen [Percocet] 5-325 mg tablet 1 tab PO Q4H PRN (Reason: pain) 7 Days Qty: 20 0RF naproxen 500 mg tablet 500 mg PO BID PRN PRN (Reason: Pain) Qty: 30 1RF No Action PNV no.[id number] 400 mcg-35 mg- 25 mg-5 mg tablet,chewable 1 tab PO DAILY Referrals / Follow Up: Blair Lim MD [Primary Care Provider] - Disposition Disposition (needs filled in before D/C Order can be placed): Home, Self Care Charges/Coding Multi Select Codes Urinary/Genital Urinary/Genital CPT Codes: No Charge
[2024-09-23 08:21] VITALS: BP 108/73; PULSE 76; RESP 16; TEMP 36.5; O2SAT 98
== END 2024-09-23 12:15 | disposition home or self-care (01) | DRG 787 ==
PROVIDERS: Admitting Provider Obstetrics & Gynecology; PCP Family Medicine; Referring Provider Obstetrics & Gynecology; Visit Provider Obstetrics & Gynecology
DX: O32.1XX0 Maternal care for breech presentation, not applicable or unspecified (principal); O41.03X0 Oligohydramnios, third trimester, not applicable or unspecified; Z37.0 Single live birth; O36.5930 Maternal care for other known or suspected poor fetal growth, third trimester, not applicable or unspecified; O36.8130 Decreased fetal movements, third trimester, not applicable or unspecified; Z3A.38 38 weeks gestation of pregnancy
CPT/HCPCS: 59025; 59050; 85025; 85027; 86780; 86850; 86900; 86901; 99221; A4216; G0378; J2405